=== PATIENT | female | born 1950 | race Caucasian/White ===

== ENCOUNTER → 2020-06-12 | Outpatient (CLI) | payer MEDICARE ==
--- NOTE | 2020-06-12 17:44 | RAD ---
Examination: 1 bilateral AP standing knees. 2. Bilateral sunrise and lateral view knees INDICATION: Bilateral knee pain FINDINGS: AP bilateral knees show minimal lateral subluxation of the tibia relative to the distal femurs, more apparent on the left. No fracture or aggressive bony lesions. There is mild irregularity to the artic ular surface of the femoral condyles more apparent in the medial compartments and greater on the left . Soft tissues unremarkable in the AP projection. The sunrise and lateral views show marked joint space narrowing of the patellofemoral compartment and patellofemoral osteophytic spurring bilaterally. No loose body or joint effusion. No fracture or agg ressive bony lesions. 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 Electronically signed by: Janell Chaparro MD (06/12/2020 5:41 PM) [id number]
== END ==
LOC: DXRAD 11:20
PROVIDERS: ATTEND Orthopaedic Surgery
DX: S83.102A Unspecified subluxation of left knee, initial encounter (principal); S83.101A Unspecified subluxation of right knee, initial encounter; M17.0 Bilateral primary osteoarthritis of knee; X58.XXXA Exposure to other specified factors, initial encounter; Y93.89 Activity, other specified; Y92.89 Other specified places as the place of occurrence of the external cause; Y99.8 Other external cause status
CPT/HCPCS: 73560; 73565

== ENCOUNTER → 2021-07-14 | Outpatient (CLI) | payer MEDICARE ==
--- NOTE | 2021-07-14 14:58 | RAD ---
EXAMINATION: XR KNEE_AP BILAT STANDING, XR KNEE 1-2 VIEWS CLINICAL HISTORY: LEFT KNEE SURGERY, KNEE PAIN. TECHNIQUE: XR KNEE_AP BILAT STANDING, XR KNEE 1-2 VIEWS Number of Images/Views: 4 COMPARISON: 06/12/2020 FINDINGS: Mild to moderate lateral and mild medial compartment narrowing bilaterally. Joint spaces in the garcia lofemoral compartments relatively well-maintained. Articular surface irregularity in the bilateral fe moral condyles and patella a. Bilateral tricompartmental small marginal osteophytes. No acute fractur e. No joint effusion. IMPRESSION: Tricompartmental degenerative changes bilateral knees as described without significant interval duncan e, greater on the left. Electronically signed by: Ceferino Blue DO (07/14/2021 2:55 PM) [id number]
== END ==
LOC: RAD 10:00
PROVIDERS: ATTEND Physician Assistant
DX: M17.0 Bilateral primary osteoarthritis of knee (principal); M25.761 Osteophyte, right knee; M25.762 Osteophyte, left knee; M25.861 Other specified joint disorders, right knee; M25.862 Other specified joint disorders, left knee
CPT/HCPCS: 73565; 73560-50